=== PATIENT | female | born 1935 | race Caucasian/White ===

== ENCOUNTER 2016-07-26 17:42 | Observation (INO) | payer MEDICARE ==
[2016-07-26] MEDS ORDERED: NS 0.9% 1000 ML* 1,000 ML IV ONE (19:22)
--- NOTE | 2016-07-26 19:31 | ED ---
Influenza-Like Illness - HPI Summary HPI Summary: PT FEELS WEAK AND DIZZY. PT HAS ALSO COUGH AND SOB. NO CHEST PAINS. DENIES ABD PAINS AND FEVER. FEELS RUN DOWN. - History of Current Complaint Chief Complaint: EDGeneral Time Seen by Provider: 07/26/16 19:16 Hx Obtained From: Patient Onset/Duration: Gradual Onset Severity: Moderate Associated Signs & Symptoms: Myalgia, Nasal Congestion Related Hx: Possible Flu/Infectious Exposure - Risk Factors Influenza Risk Factors: Age 65 y/o or Older - Allergy/Home Medications Allergies/Adverse Reactions: Allergies Allergy/AdvReac Type Severity Reaction Status Date / Time TOMATOES Allergy Mild Vomiting Uncoded 01/16/13 07:57 PMH/Surg Hx/FS Hx/Imm Hx Endocrine/Hematology History: Reports: Hx Diabetes - BORDERLINE- DIET CONTROLLED Cardiovascular History: Reports: Hx Hypertension - ON MEDICATION FOR GI History: Reports: Other GI Disorders - DIVERTICULITIS Musculoskeletal History: Reports: Other Musculoskeletal History - 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 TONSIL & ADENOIDS A CHILD. 2 C SECTIONS 1970'S. 2002-LEFT [place]LE- [place] [facility] [place]UMBILICAL [place]ERN[place], [facility] [place]. 2012-BILAT. CATARACT EXTRACTIONS, [facility] [place]x Anesthesia Reactions: No Infectious Disease History: No Infectious Disease History: Denies: Traveled Outside the [place] in Last 30 Days - Social History Alcohol Use: None Substance Use Type: Reports: None Smoking Status (MU): Former Smoker Review of Systems Positive: Chills Eyes: Negative ENT: Negative Cardiovascular: Negative Positive: Shortness Of Breath, Cough Gastrointestinal: Negative Genitourinary: Negative Positive: Myalgia Skin: Negative Neurological: Negative Psychological: Normal All Other Systems Reviewed And Are Negative: Yes Physical Exam Triage Information Reviewed: Yes Vital Signs On Initial Exam: Initial Vitals Temp Pulse Resp BP Pulse Ox 97.8 F 77 16 185/61 100 07/26/16 17:45 07/26/16 17:45 07/26/16 17:45 07/26/16 17:45 07/26/16 17:45 Vital Signs Reviewed: Yes Appearance: Positive: Ill-Appearing Skin: Positive: Warm Head/Face: Positive: Normal Head/Face Inspection Eyes: Positive: Normal ENT: Positive: Normal ENT inspection Neck: Positive: Supple Respiratory/Lung Sounds: Positive: Clear to Auscultation, Breath Sounds Present Cardiovascular: Positive: Normal, RRR Abdomen Description: Positive: Nontender Bowel Sounds: Positive: Present Musculoskeletal: Positive: Normal Neurological: Positive: Normal - [place] Coma Scale Coma Scale Total: 15 Diagnostics - Vital Signs Vital Signs Temp Pulse Resp BP Pulse Ox 07/26/16 17:45 97.8 F 77 16 185/61 100 - Laboratory Result Diagrams: 07/26/16 20:00 07/26/16 20:00 Lab Statement: Any lab studies that have been ordered have been reviewed, and results considered in the medical decision making process. - Radiology CXR Xray Interpretation: Positive (See Comments) - R LOWER LOBE INFILTRATE Radiology Interpretation Completed By: ED Physician Flu Symptom Course/Dx - Course Assessment/Plan: MDM: PT CAME IN WITH WEAKNESS, SOB. CXR SHOWS R LOWER LOBE INFILTRATE. IV ABX GIVEN, SPOKE TO HOSPITALIST, WILL ADMIT. - Diagnoses Provider Diagnoses: PNA (pneumonia) - Physician Notifications Discussed Care Of Patient With: HOSPITALISTDR. LAINEZ Time Discussed With Above Provider: 20:55 Discharge - Discharge Plan Condition: Stable Disposition: ADMITTED TO [facility] Referrals: Annemarie Miller MD [Primary Care Provider] -
[2016-07-26 20:18] LABS: Hematocrit 39 % (35-47); Hemoglobin 13.4 g/dl (12.0-16.0); Mean Corpuscular HGB Conc 34 g/dl (31-36); Mean Corpuscular Hemoglobin 32 pg (27-31); Mean Corpuscular Volume 94 fL (80-97); Mean Platelet Volume 9 um3 (7.4-10.4); Red Blood Count 4.15 10^6/ul (4.0-5.4); Red Cell Distribution Width 12 % (10.5-15); White Blood Count 9.2 10^3/ul (3.5-10.8)
[2016-07-26 20:33] LABS: Albumin 4.1 g/dL (3.2-5.2); BUN/Creatinine Ratio 18.6 (8-20); Calcium 9.7 mg/dL (8.6-10.3); EGFR African American 103.5 (>60); EGFR Non-African American 80.5 (>60); Globulin 2.9 g/dL (2-4); Total Bilirubin 0.4 mg/dL (0.2-1.0)
[2016-07-26 20:35] LABS: Troponin I 0.03 ng/mL (<0.04)
[2016-07-26] MEDS ORDERED: Ondansetron INJ* 2 MG/ML VIAL IV ONE (20:35)
[2016-07-26] MEDS ORDERED: Acetaminophen TAB* 325 MG PO ONE (20:35)
--- NOTE | 2016-07-26 20:56 | RAD ---
INDICATION: Short of breath COMPARISON: June 09, 2013 TECHNIQUE: An AP portable view obtained at 2050 hours is submitted. FINDINGS: Bones/Soft Tissues: There are no acute bony findings. Cardiomediastinal: The cardiomediastinal silhouette is normal. Lungs: There are no infiltrates. There is mild hyperinflation with mild chronic basilar interstitial change. Pleura: There are no pleural effusions. Other: None IMPRESSION: HYPERINFLATION WITH MILD CHRONIC BASILAR INTERSTITIAL CHANGE.
--- NOTE | 2016-07-26 21:11 | HP ---
H&P (Free Text) History and Physical: PCP: Polly Miller MD Date/Time of Evaluation: 07/26/2016 2110 CC: malaise, cough HPI: Mrs Ross is an 81YO female who lives alone in an apartment with multiple stairs who presents reporting abrupt onset of "indigestion" Sunday evening with worsening fatigue and malaise Sunday. Today she has had subjective F/C & sweats along with some non-exertional non-radiating substernal chest pressure without SOB, N/V, palpitations, or light-headedness. She had developed a non-productive cough today. She states this is very similar to how she felt when she had pneumonia about 3 years ago. Work up is notable for a CXR with interval development of haziness at the R costophrenic angle, but could be attributed to technique. Labs are unrevealing. Vitals are hypertensive, systolic in the 180s, but she has not yet been given her evening metoprolol. PMedHx HTN melanoma L forearm diverticulosis/diverticulitis sciatica Allergies TOMATOES Allergy (Mild, Uncoded 01/16/13 07:57) Vomiting COOKED TOMATOES ONLY Ambulatory Orders Aspirin 81 mg PO DAILY 04/02/12 Benefiber 1 packet PO QAM 04/02/12 Lisinopril TAB* 40 mg PO QPM 04/02/12 Metamucil 1 packet PO DAILY 04/02/12 Metoprolol 50 mg PO QPM 04/02/12 Stool Softener 1 tab PO DAILY 04/02/12 Vitamin B Complex CAP* 1 tab PO DAILY 04/02/12 Vitamin C TAB* 500 mg PO DAILY 04/02/12 Vitamin D3 1 tab PO DAILY 04/02/12 Flaxseed 1 tab PO DAILY 01/09/13 Gabapentin CAP(*) [Neurontin 100 mg CAP(*)] 2 tab PO BEDTIME 01/09/13 SocHx: former smoker quit >40years ago, no alcohol, or recreational drugs; lives alone in an apartment in an old house in [place] with many stairs, uses a walker to ambulate; DNR code status FamHx: reviewed, non-contributory ROS: as above, otherwise reviewed and all were negative Constitutional: NAD, normally developed, overweight elderly white female vitals: Vital Signs Temp 36.6 C 07/26/16 17:45 Pulse 79 07/26/16 20:00 Resp 19 07/26/16 20:00 BP 183/61 07/26/16 19:30 Pulse Ox 94 07/26/16 20:00 Intake & Output 07/25/16 07/26/16 07/26/16 23:59 11:59 23:59 Weight 140 lb HEENM: atraumatic; sclera/conjunctiva: non-icteric/clear; hearing: clinically intact; oropharynx: clear, mucosa moist Neck: soft tissue: non-tender; thyroid: normal Pulmonary: clear to auscultation bilaterally, good aeration, no accessory muscle use CV: RR/RR, normal S1S2, no carotid bruit, no jugular venous distention, 2+ B DP/ PT, no edema Abdominal: soft, non-distended, non-tender, no rebound/guarding/rigidity, normoactive bowel sounds, no hepatosplenomegaly or masses, no costovertebral angle tenderness Musculoskeletal: general: grossly intact; gait: borderline stability Integumental: normal appearance and texture Psychiatric orientation: AA&O to PPS affect: calm mood: cooperative eye contact: good content: reliable responses: timely insight: good Testing: Lab Results 07/26/16 07/26/16 07/26/16 Range/Units 20:00 20:00 20:00 WBC 9.2 (3.5-10.8) 10^3/ul RBC 4.15 (4.0-5.4) 10^6/ul Hgb 13.4 (12.0-16.0) g/dl Hct 39 (35-47) % MCV 94 (80-97) fL MCH 32 H (27-31) pg MCHC 34 (31-36) g/dl RDW 12 (10.5-15) % Plt Count 238 (150-450) 10^3/ul MPV 9 (7.4-10.4) um3 Neut % (Auto) 79.7 (38-83) % Lymph % (Auto) 16.3 L (25-47) % [place] % (Auto) 2.9 (1-9) % Eos % (Auto) 0.6 (0-6) % Baso % (Auto) 0.5 (0-2) % Absolute Neuts (auto) 7.3 (1.5-7.7) 10^3/ul Absolute Lymphs (auto) 1.5 (1.0-4.8) 10^3/ul Absolute Monos (auto) 0.3 (0-0.8) 10^3/ul Absolute Eos (auto) 0.1 (0-0.6) 10^3/ul Absolute Basos (auto) 0 (0-0.2) 10^3/ul Absolute Nucleated RBC 0 10^3/ul Nucleated RBC % 0 INR (Anticoag Therapy) (0.89-1.11) APTT (26.0-36.3) seconds Sodium 129 L (133-145) mmol/L Potassium 4.0 (3.5-5.0) mmol/L Chloride 94 L (101-111) mmol/L Carbon Dioxide 26 (22-32) mmol/L Anion Gap 9 (2-11) mmol/L BUN 13 (6-24) mg/dL Creatinine 0.70 (0.51-0.95) mg/dL Est GFR ( Amer) 103.5 (>60) Est GFR (Non-Af Amer) 80.5 (>60) BUN/Creatinine Ratio 18.6 (8-20) Glucose 142 H (70-100) mg/dL Lactic Acid 0.8 (0.5-2.0) mmol/L Calcium 9.7 (8.6-10.3) mg/dL Total Bilirubin 0.40 (0.2-1.0) mg/dL AST 17 (13-39) U/L ALT 15 (7-52) U/L Alkaline Phosphatase 61 (34-104) U/L Troponin I 0.03 (<0.04) ng/mL B-Natriuretic Peptide ( - 100) pg/mL Total Protein 7.0 (6.4-8.9) g/dL Albumin 4.1 (3.2-5.2) g/dL Globulin 2.9 (2-4) g/dL Albumin/Globulin Ratio 1.4 (1-3) Influenza A (Rapid) (Negative) Influenza B (Rapid) (Negative) 07/26/16 07/26/16 07/26/16 Range/Units 20:00 20:00 20:59 WBC (3.5-10.8) 10^3/ul RBC (4.0-5.4) 10^6/ul Hgb (12.0-16.0) g/dl Hct (35-47) % MCV (80-97) fL MCH (27-31) pg MCHC (31-36) g/dl RDW (10.5-15) % Plt Count (150-450) 10^3/ul MPV (7.4-10.4) um3 Neut % (Auto) (38-83) % Lymph % (Auto) (25-47) % [place] % (Auto) (1-9) % Eos % (Auto) (0-6) % Baso % (Auto) (0-2) % Absolute Neuts (auto) (1.5-7.7) 10^3/ul Absolute Lymphs (auto) (1.0-4.8) 10^3/ul Absolute Monos (auto) (0-0.8) 10^3/ul Absolute Eos (auto) (0-0.6) 10^3/ul Absolute Basos (auto) (0-0.2) 10^3/ul Absolute Nucleated RBC 10^3/ul Nucleated RBC % INR (Anticoag Therapy) 0.96 (0.89-1.11) APTT 32.7 (26.0-36.3) seconds Sodium (133-145) mmol/L Potassium (3.5-5.0) mmol/L Chloride (101-111) mmol/L Carbon Dioxide (22-32) mmol/L Anion Gap (2-11) mmol/L BUN (6-24) mg/dL Creatinine (0.51-0.95) mg/dL Est GFR ( Amer) (>60) Est GFR (Non-Af Amer) (>60) BUN/Creatinine Ratio (8-20) Glucose (70-100) mg/dL Lactic Acid (0.5-2.0) mmol/L Calcium (8.6-10.3) mg/dL Total Bilirubin (0.2-1.0) mg/dL AST (13-39) U/L ALT (7-52) U/L Alkaline Phosphatase (34-104) U/L Troponin I (<0.04) ng/mL B-Natriuretic Peptide 167 H ( - 100) pg/mL Total Protein (6.4-8.9) g/dL Albumin (3.2-5.2) g/dL Globulin (2-4) g/dL Albumin/Globulin Ratio (1-3) Influenza A (Rapid) Negative (Negative) Influenza B (Rapid) Negative (Negative) ECG, personally reviewed: ordered, pending CXR, personally reviewed: IMPRESSION: HYPERINFLATION WITH MILD CHRONIC BASILAR INTERSTITIAL CHANGE. Impression: 81F presenting with URI, possibly early pneumonia who lives alone in an apartment unsafe to return to [facility] DIAGNOSIS & PLAN Primary URI, possibly early pneumonia : IVFs : IV azithromycin & ceftriaxone : supplemental oxygen : benzonatate : blood & sputum CX : supportive care chest pain, doubt ACS : aspirin : telemetry : trend troponin : recheck ECG in AM : if above negative & no further chest pain, would have patient f/u w/ PCP outpatient Secondary HTN : continue lisinopril & metoprolol melanoma L forearm : no evidence of disease sciatica : continue gabapentin Admission Rational: observation for initiation of ABX and monitoring for potential early pneumonia & r/o ACS DVTp: heparin SQ Code Status: full HCP: daughter
[2016-07-26] MEDS ORDERED: Acetaminophen TAB* 325 MG PO PRN (21:45)
[2016-07-26] MEDS ORDERED: hydrALAZINE IV* 20 MG/ML VIAL IV PRN (21:45)
[2016-07-26] MEDS ORDERED: Melatonin (NF) 3 MG TAB PO PRN (21:45)
[2016-07-26] MEDS ORDERED: traMADol TAB* 50 MG PO PRN (21:45)
[2016-07-26] MEDS ORDERED: NS 0.9% 1000 ML* 1,000 ML IV SCH (21:45)
[2016-07-26] MEDS ORDERED: Albuterol 2.5 MG/3 ML NEB.SOL* (0.083%) INH PRN (21:45)
[2016-07-26] MEDS ORDERED: Ondansetron INJ* 2 MG/ML VIAL IV PRN (21:45)
[2016-07-26] MEDS ORDERED: cefTRIAXone VIAL(*) 1,000 MG in NS 0.9% 50 ML* 50 ML IVPB SCH (22:00)
[2016-07-26] MEDS ORDERED: Aspirin Low Dose CHEW TAB* 81 MG PO ONE (22:11)
[2016-07-26] MEDS ORDERED: Gabapentin CAP(*) 100 MG PO SCH (23:00)
[2016-07-26] MEDS ORDERED: Azithromycin IV(*) 500 MG in NS 0.9% 250 ML* 250 ML IVPB SCH (23:15)
[2016-07-27 00:59] LABS: Budding Yeast Present (Absent); Urine Bacteria Absent (Absent); Urine Bilirubin Negative (Negative); Urine Glucose Negative (Negative); Urine Nitrite Positive (Negative)
[2016-07-27] MEDS: Heparin VIAL(*) 5000 UNITS/ML VIAL (FIVE THOUSAND) SUBCUT SCH ×2 (05:19→13:47)
[2016-07-27] MEDS ORDERED: Omeprazole CAP* 20 MG PO SCH (06:00)
[2016-07-27 06:20] LABS: Hematocrit 36 % (35-47); Hemoglobin 12.5 g/dl (12.0-16.0); Mean Corpuscular HGB Conc 35 g/dl (31-36); Mean Corpuscular Hemoglobin 32 pg (27-31); Mean Corpuscular Volume 93 fL (80-97); Mean Platelet Volume 9 um3 (7.4-10.4); Red Blood Count 3.87 10^6/ul (4.0-5.4); Red Cell Distribution Width 12 % (10.5-15); White Blood Count 9.5 10^3/ul (3.5-10.8)
[2016-07-27 06:48] LABS: BUN/Creatinine Ratio 20.3 (8-20); Calcium 9.1 mg/dL (8.6-10.3); EGFR African American 105.3 (>60); EGFR Non-African American 81.9 (>60); Potassium 3.9 mmol/L (3.5-5.0)
[2016-07-27 06:54] LABS: Troponin I 0.06 ng/mL (<0.04)
[2016-07-27] MEDS ORDERED: Docusate CAP* 100 MG PO SCH (09:00)
[2016-07-27] MEDS ORDERED: BENEFIBER PO SCH (09:00)
[2016-07-27] MEDS ORDERED: Aspirin Low Dose CHEW TAB* 81 MG PO SCH (09:00)
[2016-07-27 12:16] VITALS: BP 154/63
--- NOTE | 2016-07-27 14:19 | PN ---
Subjective Date of Service: 07/27/16 Interval History: Patient seen and examined at bedside. Pt states that she feels better today, but is tired. Pt states that she usually is tired in the afternoons. Denies fever, chills, shortness of breath, chest discomfort, N/V/D. Pt reports mild indigestion after lunch today. Tele: Sinus rhythm, rate 70-90's. Family History: Unchanged from Admission Social History: Unchanged from Admission Past Medical History: Unchanged from Admission Objective Active Medications: Acetaminophen (Tylenol Tab*) 650 mg PO Q6H PRN Reason: FEVER/PAIN Albuterol (Ventolin 2.5 Mg/3 Ml Neb.Kymberly*) 2.5 mg INH Q2H PRN Reason: SOB/ WHEEZING Aspirin (Aspirin Low Dose Tab*) 81 mg PO DAILY KEVIN Docusate Sodium (Colace Cap*) 200 mg PO BID KEVIN Gabapentin (Neurontin Cap(*)) 200 mg PO BEDTIME KEVIN Heparin Sodium (Porcine) (Heparin Vial(*)) 5,000 units SUBCUT Q8HR KEVIN Hydralazine HCl (Apresoline Iv*) 10 mg IV Q4H PRN Reason: Systolic >170 Sodium Chloride (Ns 0.9% 1000 Ml*) 1,000 mls @ 75 mls/hr IV PER RATE KEVIN Ceftriaxone Sodium 1,000 mg/ (Sodium Chloride) 50 mls @ 200 mls/hr IVPB Q24H KEVIN Azithromycin 500 mg/ Sodium (Chloride) 250 mls @ 250 mls/hr IVPB Q24H [facility] Lisinopril (Prinivil Tab*) 40 mg PO QPM [facility] Melatonin (Melatonin (Nf)) 3 mg PO BEDTIME PRN; Protocol Reason: Sleep Metoprolol Tartrate (Lopressor Tab*) 50 mg PO QPM [facility] Non-Formulary Medication (Benefiber) 1 packet PO QAM KEVIN Omeprazole (Prilosec Cap*) 20 mg PO DAILY@0600 KEVIN Ondansetron HCl (Zofran Inj*) 4 mg IV Q6H PRN Reason: NAUSEA Tramadol HCl (Ultram*) 50 mg PO Q6H PRN Reason: PAIN Vital Signs 07/26/16 07/26/16 07/26/16 22:30 22:50 23:35 Temperature 98.2 F 98.4 F Pulse Rate 80 82 83 Respiratory 17 18 20 Rate Blood Pressure 169/50 167/79 163/64 (mmHg) O2 Sat by Pulse 95 98 99 Oximetry 07/27/16 07/27/16 07/27/16 03:28 07:16 09:02 Temperature 98.4 F 98.1 F Pulse Rate 79 75 76 Respiratory 20 16 14 Rate Blood Pressure 143/55 137/58 (mmHg) O2 Sat by Pulse 98 99 98 Oximetry 07/27/16 11:12 Temperature 98.1 F Pulse Rate 77 Respiratory 16 Rate Blood Pressure 154/63 (mmHg) O2 Sat by Pulse 100 Oximetry Oxygen Devices in Use Now: None Appearance: NAD, laying in bed Eyes: No Scleral Icterus, PERRLA Ears/Nose/Mouth/Throat: NL Teeth, Lips, Gums, Mucous Membranes Moist Neck: NL Appearance and Movements; NL JVP, Trachea Midline Respiratory: Symmetrical Chest Expansion and Respiratory Effort, Clear to Auscultation Cardiovascular: NL Sounds; No Murmurs; No JVD, RRR Abdominal: NL Sounds; No Tenderness; No Distention Extremities: No Edema Skin: No Rash or Ulcers Neurological: Alert and Oriented x 3, NL Muscle Strength and Tone Lines/Tubes/Other Access: Clean, Dry and Intact Peripheral IV - site benign Nutrition: Taking PO's Result Diagrams: 07/27/16 05:49 07/27/16 05:49 Microbiology and Other Data: Microbiology 07/27/16 00:36 Legionella Urinary Antigen - Final Urine Negative Legionella Streptococcus pneumoniae Ag Screen - Final Negative S. pneumo Antigen Assess/Plan/Problems-Billing Assessment: Mr. Ross is a 81 yo female with PMH significant for HTN who presented to the emergency room with complaints of fever, chills, chest discomfort and cough. - Patient Problems (1) URI (upper respiratory infection) Code(s): J06.9 - ACUTE UPPER RESPIRATORY INFECTION, UNSPECIFIED SNOMED Code(s) : 43998704 Comment: - Afebrile, no leukocytosis - Reports cough with clear mucous - This could represent an early PNA or bronchitis, will continue Augmentin (2) Chest pain Code(s): R07.9 - CHEST PAIN, UNSPECIFIED SNOMED Code(s): 61783721 Comment: - Resolved - Troponins 0.03, 0.06, 0.06, 0.03 - Suspect demand ischemia (3) HTN (hypertension) Code(s): I10 - ESSENTIAL (PRIMARY) HYPERTENSION SNOMED Code(s): 69599744 Comment: - SBP 130-160's - Continue lisinopril and metoprolol (4) Sciatica Code(s): M54.30 - SCIATICA, UNSPECIFIED SIDE SNOMED Code(s): 78410576 Comment: - Continue Gabapentin (5) DVT prophylaxis Code(s): KNO3605 - SNOMED Code(s): 650131484 (6) Full code status Code(s): Z78.9 - OTHER SPECIFIED HEALTH STATUS SNOMED Code(s): 027127581 Status and Disposition: OBV. Stable for discharge to home today.
[2016-07-27] MEDS ORDERED: Metoprolol Tartrate TAB* 50 mg PO SCH (18:00)
[2016-07-27] MEDS ORDERED: Lisinopril TAB* 10 MG PO SCH (18:00)
--- NOTE | 2016-07-28 10:22 | DS ---
DISCHARGE SUMMARY: DATE OF ADMISSION: 07/26/16 DATE OF DISCHARGE: 07/27/16 ATTENDING PHYSICIAN: Niharika Sanders MD * (dictated by Susan Cobos NP) PRIMARY CARE PROVIDER: Annemarie Miller MD PRIMARY DIAGNOSES: 1. Upper respiratory tract infection with possible early pneumonia. 2. Atypical chest pain, ruled out acute coronary syndrome. STUDIES WHILE IN THE HOSPITAL: Chest x-ray on 07/26/16, radiologist impression : Hyperinflation with mild chronic bibasilar interstitial change. DISCHARGE MEDICATIONS: New home medications: 1. Augmentin 875 mg oral twice daily for 7 days. Continued home medications: 1. Lisinopril 40 mg oral every evening. 2. Stool softener 1 tablet oral daily. 3. Metamucil 1 packet oral daily. 4. Benefiber 1 oral daily. 5. Vitamin B complex 1 tablet oral daily. 6. Aspirin 81 mg oral daily. 7. Vitamin D3 1000 units oral daily. 8. Vitamin C 500 mg oral daily. 9. Flaxseed 1 tablet oral daily. 10. Gabapentin 200 mg oral daily at bedtime. 11. Metoprolol succinate XL 50 mg oral daily at bedtime. HISTORY OF PRESENT ILLNESS/HOSPITAL COURSE: Ms. Ross is an 81-year-old female with past medical history significant for hypertension, left forearm melanoma, diverticulitis, and sciatica who lives alone. The patient reports starting on July 24, that she has had worsening fatigue and malaise and had sudden onset of indigestion on Sunday. On July 26, the patient reported subjective fevers, chills, and sweats with what she described as nonexertional nonradiating substernal chest pressure without shortness of breath, nausea, vomiting, palpitations, or lightheadedness. The patient also reported developing a nonproductive cough. In addition, she states she is feeling similar to when she had pneumonia approximately 3 years ago. Based on these concerns, the patient presented to the emergency room for further evaluation of her symptoms. While in the emergency room, the patient had a chest x-ray showing interval development of haziness in the right costophrenic angle. The patient had unremarkable labs. The patient was noted to be hypertensive with systolic blood pressures under the 180s but she had not yet received her metoprolol for the day. Based off of the patient's concern for the patient possibly having an early pneumonia and her fatigue and living alone and having multiple stairs to get into her apartment, hospitalist medicine was asked to evaluate the patient for admission. While in the hospital, the patient received IV antibiotics. She was started on azithromycin and ceftriaxone. She also received IV fluids. The patient had blood cultures. The patient had legionella and Strep pneumoniae urine antigens checked that were both negative. The patient had influenza testing done that was also negative. The patient was noted to be slightly hyponatremic while in the emergency room. This did improve with IV hydration overnight. It is also to note that the patient had an indeterminate troponin of 0.03. During her stay she was trended peaking at 0.06. It was suspected that this was related to demand ischemia. The patient's chest discomfort has resolved. The patient had no leukocytosis and has been afebrile during her stay. The patient is unable to ambulate without complaints of shortness of breath. The patient states that she feels fatigued in the afternoon, but overall was feeling better. The patient was monitored on telemetry and no acute findings were noted. The patient had a repeat EKG this morning that showed no signs of acute ischemia. Ms. Ross is stable for discharge to home today. Vital signs are as follows: Temperature 98.1, heart rate 77, respiratory rate 16, O2 sat 100% on room air , and blood pressure 154/63. DISCHARGE PLAN: Ms. Ross will be discharged to home. ACTIVITY: As tolerated. DIET: Regular diet. As far as patient's upper respiratory infection, I suspect this could possibly be a bacterial bronchitis or an early pneumonia. The patient has been placed on Augmentin 875 mg twice daily for a 7-day course. As far as the patient's chest discomfort, this sounds like indigestion. She did have indeterminate troponins. I would recommend if she continues to have complaints of chest discomfort that she be worked up outpatient. This could possibly include outpatient stress test. I did offer to start the patient on omeprazole and she would like to continue using TUMS as needed at home for the time being. As far as the patient's chronic medical condition, she has been continued on her home medications. The patient should follow up with her primary care provider, Dr. Miller. She has an appointment on July 31 at 12:30 p.m. The patient has been instructed to return to the emergency room for chest discomfort, shortness of breath, or worsening symptoms. This is a summarized report of a complex medical history and hospital stay. For full details, please see the entire medical record. TIME SPENT: Time for this discharge was 50 minutes and 25 minutes was spent face- to-face with the patient, discussing discharge plans and instructions. CONDITION ON DISCHARGE: Stable. Reviewed by SHARONDA ORJAS-Tj 08/02/16 1444 CC: Annemarie Miller MD* [id number]/[facility] #: [id number] MTDD
== END 2016-07-27 16:45 | disposition home or self-care (01) ==
LOC: ED 17:42 → MEDTELE 22:25
PROVIDERS: ADMIT Hospitalist; ATTEND Internal Medicine
DX: J06.9 Acute upper respiratory infection, unspecified (principal); R53.81 Other malaise; R05 Cough; I10 Essential (primary) hypertension; Z79.82 Long term (current) use of aspirin; Z87.891 Personal history of nicotine dependence; M54.30 Sciatica, unspecified side
CPT/HCPCS: 36415; 71010; 80048; 80053; 81003; 81015; 83605; 83880; 84484; 85025; 85610; 85730; 87040; 87077; 87086; 87186; 87502; 87899; 93005; 96374; 96375; 99283; A9270-GY; G0378; G8978-GP-CJ; G8979-GP-CI; G8980-GP-CJ; J0456; J0696; J1644; J2405